=== PATIENT | female | born 1990 | race African-American/Black ===

== ENCOUNTER 2019-03-03 15:20 | Emergency (ER) | payer OTHER ==
[2019-03-03 15:25] VITALS: BP 130/80; PULSE 98; TEMP 97.9; BMI 21.4
--- NOTE | 2019-03-03 15:25 | PDOC ---
Rapid Medical Evaluation Time Seen by Provider: 03/03/19 15:21 Medical Evaluation: 03/03/19 15:22 Pt presents for urinary symptoms for one week. She states the symptoms come and go. She notes that she did have dysuria this morning. Exam: suprapubic discomfort Orders: urine Pt to proceed to the ER for further evaluation Discharge Disposition - Diagnosis Dysuria - Referrals - Patient Instructions - Post Discharge Activity
--- NOTE | 2019-03-03 15:43 | PDOC ---
History of Present Illness - General Chief Complaint: Urinary Problem Stated Complaint: UTI Time Seen by Provider: 03/03/19 15:21 History Source: Patient - History of Present Illness Timing/Duration: reports: constant Past History - Past Medical History Allergies/Adverse Reactions: Allergies Allergy/AdvReac Type Severity Reaction Status Date / Time No Known Allergies Allergy Verified 03/03/19 15:25 Home Medications: Ambulatory Orders Nitrofurantoin Monohyd/M-Cryst [Macrobid -] 100 mg PO BID #14 capsule 03/03/19 COPD: No - Psycho Social/Smoking Cessation Hx Smoking History: Never smoked Information on smoking cessation initiated: No Hx Alcohol Use: No Drug/Substance Use Hx: No Review of Systems - Review of Systems Constitutional: No: Chills, Fever ABD/GI: No: Nausea, Vomiting, Abdominal cramping : Yes: Dysuria. No: Discharge, Flank Pain, Hematuria *Physical Exam - Vital Signs Last Vital Signs Temp Pulse Resp BP Pulse Ox 97.9 F 98 H 19 130/80 100 03/03/19 15:23 03/03/19 15:23 03/03/19 15:23 03/03/19 15:23 03/03/19 15:23 - Physical Exam General Appearance: Yes: Appropriately Dressed. No: Apparent Distress HEENT: positive: Normal Voice Neck: positive: Supple Respiratory/Chest: negative: Respiratory Distress Gastrointestinal/Abdominal: positive: Soft. negative: Tender Musculoskeletal: negative: CVA Tenderness Integumentary: positive: Dry, Warm Neurologic: positive: Fully Oriented, Alert, Normal Mood/Affect Medical Decision Making - Medical Decision Making 03/03/19 15:40 28-year-old female here with dysuria w/ foul smelling urine and urinary frequency x1 week, similar to prior UTIs. No flank pain nausea vomiting fever or chills. No vaginal discharge foul odor or itching or genital lesions see exam UTI No e/o pyelo UA w/ 2+ LE, 72 WBC and joce 34, upreg neg -dc w/ abx (no prior sen on record here) Discharge - Discharge Information Problems reviewed: Yes Clinical Impression/Diagnosis: Dysuria Condition: Good Disposition: HOME - Additional Discharge Information Prescriptions: Nitrofurantoin Monohyd/M-Cryst [Macrobid -] 100 mg PO BID #14 capsule - Follow up/Referral - Patient Discharge Instructions Patient Printed Discharge Instructions: DI for Urinary Tract Infection (UTI) Additional Instructions: Take antibiotics as prescribed and return to ER for worsening of symptoms - Post Discharge Activity
[2019-03-03 16:15] LABS: EPI CELLS 0.2 /HPF (0-5/HPF); HYALINE CASTS 3 /lpf (0-8); URINE APPEARANCE CLEAR; URINE BACTERIA 34.2 /hpf (NEGATIVE); URINE BILIRUBIN NEGATIVE (NEGATIVE); URINE COLOR YELLOW; URINE GLUCOSE (UA) NEGATIVE (NEGATIVE); URINE KETONE NEGATIVE (NEGATIVE); URINE LEUK ESTERASE 2+ (NEGATIVE); URINE NITRITE NEGATIVE (NEGATIVE); URINE PROTEIN NEGATIVE (NEGATIVE); URINE RBC 3 /hpf (0-4); URINE UROBILINOGEN 0.2 mg/dL (0.2-1.0); URINE WBC 72 /hpf (0-5)
== END 2019-03-03 16:03 | disposition home or self-care (01) ==
LOC: JERFT 15:20
DX: R30.0 Dysuria (principal)
CPT/HCPCS: 81003; 84703; 87086; 87186; 99282-25

== ENCOUNTER 2019-05-18 08:11 | Emergency (ER) | payer OTHER ==
[2019-05-18 08:17] VITALS: BMI 21.4
--- NOTE | 2019-05-18 09:01 | PDOC ---
History of Present Illness - General Chief Complaint: Abnormal Lab Results (Outside) Stated Complaint: ABNORMAL LAB WORK Time Seen by Provider: 05/18/19 08:31 History Source: Patient - History of Present Illness Initial Comments: 05/18/19 08:50 Ms. Sanchez is a 28 y/o woman w/hx anemia presenting after being called from urgent care that her CPK level was elevated. She reports typically exercising regularly 5-7 days per week, but that she recently took 2 months off due to difficulty with her work schedule. She reports recently starting her exercise routine again, currently 3x per week. She reports that after exercising her arms on , waking up friday morning with R arm soreness out of proportion to the rest of her body. She reports that at that time the arm was weak, and that she had difficulty with flexion and extension. At that time she reports forearm swelling without redness. She presented to urgent care after work on Friday (two days ago) - at that time her creatinine was 1.1, but her CPK was over 11,000. She was discharged home with instructions for follow up labs in 2 days. Today she was called after her bloodwork resulted noting a CPK of 12,000 as well as an increase in her creatinine of 1 point. She denies any symptoms at this time, she denies any pain, hematuria, change in urine color, dysuria, arm weakness, or arm pain. Past History - Past Medical History Allergies/Adverse Reactions: Allergies Allergy/AdvReac Type Severity Reaction Status Date / Time No Known Allergies Allergy Verified 05/18/19 08:17 Home Medications: Ambulatory Orders Cephalexin [Keflex] 500 mg PO BID #14 capsule 03/05/19 COPD: No - Psycho Social/Smoking Cessation Hx Smoking History: Never smoked Have you smoked in the past 12 months: No Information on smoking cessation initiated: No Hx Alcohol Use: No Drug/Substance Use Hx: No Review of Systems - Review of Systems Able to Perform ROS?: Yes Comments:: 05/18/19 09:46 ROS: GENERAL/CONSTITUTIONAL: No fever or chills. No weakness. HEAD, EYES, EARS, NOSE AND THROAT: No change in vision. No ear pain or discharge. No sore throat. CARDIOVASCULAR: No chest pain or shortness of breath RESPIRATORY: No cough, wheezing, or hemoptysis. GASTROINTESTINAL: No nausea, vomiting, diarrhea or constipation. GENITOURINARY: No dysuria, frequency, or change in urination. MUSCULOSKELETAL: No joint or muscle swelling or pain. No neck or back pain. SKIN: No rash NEUROLOGIC: No headache, vertigo, loss of consciousness, or change in strength/ sensation. ENDOCRINE: No increased thirst. No abnormal weight change HEMATOLOGIC/LYMPHATIC: No anemia, easy bleeding, or history of blood clots. ALLERGIC/IMMUNOLOGIC: No hives or skin allergy. *Physical Exam - Vital Signs Last Vital Signs Temp Pulse Resp BP Pulse Ox 98.3 F 78 18 122/76 100 05/18/19 08:14 05/18/19 08:14 05/18/19 08:14 05/18/19 08:14 05/18/19 08:14 - Physical Exam 05/18/19 09:48 PE: GENERAL: Awake, alert, and fully oriented, in no acute distress HEAD: No signs of trauma, normocephalic, atraumatic EYES: PERRLA, EOMI, sclera anicteric, conjunctiva clear ENT: Auricles normal inspection, hearing grossly normal, nares patent, oropharynx clear without exudates. Moist mucosa NECK: Normal ROM, supple, no lymphadenopathy, JVD, or masses LUNGS: No distress, speaks full sentences, clear to auscultation bilaterally HEART: Regular rate and rhythm, normal S1 and S2, no murmurs, rubs or gallops, peripheral pulses normal and equal bilaterally. ABDOMEN: Soft, nontender, normoactive bowel sounds. No guarding, no rebound. No masses EXTREMITIES : Normal inspection, Normal range of motion, no edema. No clubbing or cyanosis NEUROLOGICAL: Cranial nerves II through XII grossly intact. Normal speech, normal gait, no focal sensorimotor deficits SKIN: Warm, Dry, normal turgor, no rashes or lesions noted ED Treatment Course - LABORATORY CBC & Chemistry Diagram: 05/18/19 09:26 05/18/19 09:26 Medical Decision Making - Medical Decision Making 05/18/19 09:48 28F w/hx anemia p/w CPK elevation, ARLEEN after bicep curls c/w rhabdomyolysis. Differential includes medication effect, although rare complication of oral contraception and history more indicative of exercise. Plan: CBC CMP UA CPK 2L LR IV Dispo: Discharge pending fluids, CPK trending Discharge - Discharge Information Problems reviewed: Yes Clinical Impression/Diagnosis: Rhabdomyolysis Qualifiers: Rhabdomyolysis type: traumatic Encounter type: initial encounter Qualified Code (s): T79.6XXA - Traumatic ischemia of muscle, initial encounter Condition: Stable Disposition: HOME - Admission No - Follow up/Referral Referrals: Katie Morley MD [Primary Care Provider] - - Patient Discharge Instructions Patient Printed Discharge Instructions: DI for Rhabdomyolysis Additional Instructions: You were seen in the ER after your bloodwork in the urgent care noted a high CPK. CPK is a protein that can rise when muscle starts to break down, including sometimes after heavy exercise. We gave you several liters of fluids to prevent any possible injury to your kidneys. Your kidney levels were normal in the ER. Please be sure to remain very well hydrated, and follow up with your primary care doctor as soon as possible, in the next 2-3 days. Return to the ER if you develop weakness, confusion, your urine changes color, or you develop chest pain. - Post Discharge Activity
[2019-05-18] MEDS ORDERED: LACTATED RINGERS SOLUTION 1000 ML INFUS.BAG IV ONE ×2 (09:05→11:20)
[2019-05-18 09:46] LABS: HEMOGLOBIN 11.9 GM/dL (10.7-15.3); MCH 28.8 pg (25.7-33.7); MEAN CELL VOLUME 87.1 fl (80-96); PLATELET COUNT 346 K/MM3 (134-434); RBC 4.13 M/mm3 (3.60-5.2); RDW 15.6 % (11.6-15.6); WHITE BLOOD COUNT 6.8 K/mm3 (4.0-10.0)
[2019-05-18 09:47] LABS: PH,URINE 6.5 (5.0-8.0); URINE APPEARANCE CLEAR; URINE BILIRUBIN NEGATIVE (NEGATIVE); URINE COLOR YELLOW; URINE GLUCOSE (UA) NEGATIVE (NEGATIVE); URINE KETONE NEGATIVE (NEGATIVE); URINE LEUK ESTERASE NEGATIVE (NEGATIVE); URINE NITRITE NEGATIVE (NEGATIVE); URINE PROTEIN NEGATIVE (NEGATIVE); URINE UROBILINOGEN 0.2 mg/dL (0.2-1.0)
--- NOTE | 2019-05-18 09:55 | PDOC ---
Attending Attestation - Resident Resident Name: ArletteAustin - ED Attending Attestation I have performed the following: I have examined & evaluated the patient, The case was reviewed & discussed with the resident, I agree w/resident's findings & plan, Exceptions are as noted - HPI HPI: 05/18/19 09:53 28 years old with no significant past medical history was working out at the gym doing bicep curls had not worked out in a while before that this was on . On Friday she began to develop bicep muscle soreness. Progressively worsening over the weekend Friday was significantly worse associated with swelling Pain was persistent constant worse with movement no alleviating factors she presented to an urgent care had blood work done and was diagnosed with rhabdomyolysis her kidney function was normal she was told to follow-up today for repeat labs. Pain and swelling have significantly improved. She has full range of motion. No other recent URI type symptoms only medication is control - Physicial Exam PE: 05/18/19 09:54 Vitals: Triage Vital signs reviewed General Appearance: No acute distress, well nourished well developed, Head: Atraumatic, Cardiac: Regular rate and rhythym, no murmurs, no rubs, no gallops, Lungs: Clear to auscultation bilateral, good air movement bilaterally, Abdomen: Soft, non distended, normal bowel sounds, non tender to palpation Extremities: Full range of motion to all extremities, slight warmth and swelling to right bicep no evidence of cellulitis Skin: Warm and dry, no rashes or lesions, no rash, no petechiae Psych: Normal mood, normal affect - Medical Decision Making 05/18/19 09:54 Well-appearing no apparent distress with rhabdomyolysis to right bicep CKs are improving patient feels well swelling is improving not on any medications other than control We will have patient follow-up with orthopedic prior to resuming exercise regimen Findings, need for follow-up and strict return instructions discussed with patient.
[2019-05-18 10:45] LABS: ALBUMIN 3.5 g/dl (3.4-5.0); BILIRUBIN,TOTAL 0.4 mg/dL (0.2-1); BLOOD UREA NITROGEN 11.2 mg/dL (7-18); CALCIUM 9.2 mg/dL (8.5-10.1); CREATININE 0.8 mg/dL (0.55-1.3); TOT PROT 7.5 g/dl (6.4-8.2)
[2019-05-18 11:52] VITALS: BP 107/60; PULSE 70; TEMP 98.5
== END 2019-05-18 11:40 | disposition home or self-care (01) ==
LOC: JER 08:11
DX: T79.6XXA Traumatic ischemia of muscle, initial encounter (principal); X50.0XXA Overexertion from strenuous movement or load, initial encounter; Y93.B9 Activity, other involving muscle strengthening exercises; Y92.89 Other specified places as the place of occurrence of the external cause; Y99.8 Other external cause status; R74.8 Abnormal levels of other serum enzymes; Z86.2 Personal history of diseases of the blood and blood-forming organs and certain disorders involving the immune mechanism
CPT/HCPCS: 36415; 80053; 81003; 82550; 82553; 85027; 99284-25

== ENCOUNTER 2022-05-15 21:54 | Emergency (ER) | payer OTHER ==
[2022-05-15 22:07] VITALS: BP 118/84; PULSE 106; RESP 20; TEMP 98.5; BMI 23.8
[2022-05-15 23:45] LABS: BASO % 0.6 % (0-2.0); HEMOGLOBIN 11.7 GM/dL (10.7-15.3); LYMPH % 21.2 % (8-40); MCH 28.7 pg (25.7-33.7); MCHC 33.4 g/dl (32.0-36.0); MEAN PLT VOLUME 8.2 fl (7.5-11.1); NEUT % 71.2 % (42.8-82.8); PLATELET COUNT 315 10^3/uL (134-434); RBC 4.06 M/mm3 (3.60-5.2); RDW 16.8 % (11.6-15.6); WHITE BLOOD COUNT 8.5 K/mm3 (4.0-10.0)
[2022-05-16 00:06] LABS: ALBUMIN 4.1 g/dl (3.4-5.0); CALCIUM 9.7 mg/dL (8.5-10.1)
[2022-05-16 00:09] LABS: CREATININE 0.7 mg/dL (0.55-1.3)
[2022-05-16 00:11] LABS: BILIRUBIN,TOTAL 0.6 mg/dL (0.2-1); TOT PROT 7.9 g/dl (6.4-8.2)
[2022-05-16 00:45] LABS: PH,URINE 5.5 (5.0-8.0); URINE APPEARANCE CLEAR; URINE BILIRUBIN NEGATIVE (NEGATIVE); URINE COLOR YELLOW; URINE GLUCOSE (UA) NEGATIVE (NEGATIVE); URINE KETONE 1+ (NEGATIVE); URINE LEUK ESTERASE NEGATIVE (NEGATIVE); URINE NITRITE NEGATIVE (NEGATIVE); URINE PROTEIN NEGATIVE (NEGATIVE); URINE UROBILINOGEN 0.2 mg/dL (0.2-1.0)
[2022-05-16 00:47] LABS: HCG,QUALITATIVE URINE Positive
== END 2022-05-16 02:09 | disposition home or self-care (01) ==
LOC: JER 21:54
DX: O26.851 Spotting complicating pregnancy, first trimester (principal); Z3A.01 Less than 8 weeks gestation of pregnancy
CPT/HCPCS: 36415; 76817-TC; 80053; 81003; 84702; 84703; 85025; 86850; 86900; 86901; 87086; 93005; 93010; 99285-25

== ENCOUNTER 2022-06-01 06:51 | Emergency (ER) | payer OTHER ==
[2022-06-01 07:23] VITALS: BP 113/57; PULSE 83; RESP 18; TEMP 97; BMI 23.1
[2022-06-01 08:51] LABS: BASO % 0.3 % (0-2.0); EOS % 1.9 % (0-4.5); HEMATOCRIT 34.7 % (32.4-45.2); HEMOGLOBIN 11.6 GM/dL (10.7-15.3); MCH 28.8 pg (25.7-33.7); MCHC 33.5 g/dl (32.0-36.0); MEAN CELL VOLUME 85.8 fl (80-96); MEAN PLT VOLUME 8.6 fl (7.5-11.1); MONO % 6.2 % (3.8-10.2); NEUT % 75.6 % (42.8-82.8); PLATELET COUNT 360 10^3/uL (134-434); RBC 4.04 M/mm3 (3.60-5.2); RDW 17.4 % (11.6-15.6); WHITE BLOOD COUNT 9.7 K/mm3 (4.0-10.0)
[2022-06-01 10:19] LABS: EPI CELLS 8 /uL (0-25.1); HYALINE CASTS 0 /uL (0-3.1); URINE APPEARANCE CLEAR; URINE BACTERIA 47 /uL (0-1359); URINE BILIRUBIN NEGATIVE (NEGATIVE); URINE COLOR YELLOW; URINE GLUCOSE (UA) NEGATIVE (NEGATIVE); URINE KETONE 1+ (NEGATIVE); URINE LEUK ESTERASE TRACE (NEGATIVE); URINE NITRITE NEGATIVE (NEGATIVE); URINE PROTEIN NEGATIVE (NEGATIVE); URINE RBC 5 /uL (0-23.9); URINE WBC 9 /uL (0-25.8)
== END 2022-06-01 10:45 | disposition home or self-care (01) ==
LOC: JER 06:51
DX: O20.9 Hemorrhage in early pregnancy, unspecified (principal); Z3A.01 Less than 8 weeks gestation of pregnancy
CPT/HCPCS: 36415; 76801-TC; 81003; 84702; 85025; 86850; 86900; 86901; 87086; 99284-25

== ENCOUNTER 2022-06-20 06:08 | Emergency (ER) | payer OTHER ==
[2022-06-20 06:24] VITALS: BP 115/73; PULSE 86; RESP 20; TEMP 98.3; BMI 24.0
== END 2022-06-20 08:12 | disposition home or self-care (01) ==
LOC: JER 06:08
DX: R50.9 Fever, unspecified (principal)
CPT/HCPCS: 0241U-QW; 99283-25

== ENCOUNTER 2022-06-21 01:23 | Emergency (ER) | payer OTHER ==
[2022-06-21 01:36] VITALS: BP 125/85; PULSE 91; RESP 18; TEMP 98; BMI 24.0
[2022-06-21] MEDS ORDERED: ACETAMINOPHEN 325 MG TABLET (FP) PO ONE (02:42)
[2022-06-21] MEDS ORDERED: ACETAMINOPHEN 325 MG TABLET (FP) ONE (02:58)
[2022-06-21 03:23] LABS: BASO % 0.4 % (0-2.0); EOS % 1.2 % (0-4.5); HEMATOCRIT 31.8 % (32.4-45.2); HEMOGLOBIN 10.6 GM/dL (10.7-15.3); LYMPH % 17.7 % (8-40); MCH 28.1 pg (25.7-33.7); MCHC 33.4 g/dl (32.0-36.0); MEAN CELL VOLUME 84.2 fl (80-96); MEAN PLT VOLUME 7.8 fl (7.5-11.1); MONO % 13.3 % (3.8-10.2); NEUT % 67.4 % (42.8-82.8); PLATELET COUNT 303 10^3/uL (134-434); RBC 3.77 M/mm3 (3.60-5.2); RDW 16.9 % (11.6-15.6); WHITE BLOOD COUNT 7.9 K/mm3 (4.0-10.0)
[2022-06-21 03:44] LABS: CALCIUM 8.8 mg/dL (8.5-10.1)
[2022-06-21 03:48] LABS: CREATININE 0.6 mg/dL (0.55-1.3)
[2022-06-21 03:50] LABS: BILIRUBIN,TOTAL 0.3 mg/dL (0.2-1); TOT PROT 6.6 g/dl (6.4-8.2)
[2022-06-21] MEDS ORDERED: morphine CARPU-JECT 2 MG/1 ML DISP.SYRIN IVPUSH ONE (04:03)
== END 2022-06-21 06:43 | disposition home or self-care (01) ==
LOC: JER 01:23
PROC: 3E033NZ Introduction of Analgesics, Hypnotics, Sedatives into Peripheral Vein, Percutaneous Approach (ICD-10-PCS; principal; 2022-06-21)
DX: O20.0 Threatened abortion (principal); O20.8 Other hemorrhage in early pregnancy; Z3A.09 9 weeks gestation of pregnancy
CPT/HCPCS: 36415; 76817-TC; 80053; 84702; 85025; 99284-25

== ENCOUNTER 2022-11-04 22:59 | Emergency (ER) | payer OTHER ==
[2022-11-04 23:09] VITALS: BP 121/76; PULSE 81; RESP 16; TEMP 98; BMI 22.8
[2022-11-05] MEDS ORDERED: RALTEGRAVIR POTASSIUM 400 MG TAB PO ONE (00:15)
[2022-11-05 04:23] LABS: HIV INTERPRETATION NEGATIVE (NEGATIVE)
[2022-11-05] MEDS ORDERED: EMTRICITABINE 200MG/TENOFOVIR 300MG PO SCH (10:00)
== END 2022-11-05 02:46 | disposition home or self-care (01) ==
LOC: JER 22:59
DX: S61.233A Puncture wound without foreign body of left middle finger without damage to nail, initial encounter (principal); W46.0XXA Contact with hypodermic needle, initial encounter; Y99.0 Civilian activity done for income or pay
CPT/HCPCS: 36415; 87340; 87389; 87517; 87902; 99283-25